=== PATIENT | male | born 1985 | race Two or more races ===

== ENCOUNTER 2024-09-02 16:27 | Emergency (ER) | payer MEDICAID, SELFPAY ==
[2024-09-02 16:28] VITALS: BP 149/106; PULSE 150; RESP 18; TEMP 37.3; O2SAT 96; BMI 20.8
--- NOTE | 2024-09-02 16:34 | EKG_ITS ---
[facility] Test Date: 2024-09-02 Pat Name: NAN VACA Department: Room: - Gender: Male End User Consultant: : 1985 Requested By: Cici Mills Order Number: [id number] Reading MD: Cici Mills Measurements Intervals [place] Rate: 112 P: 66 WA: 154 QRS: 67 QRSD: 94 T: 70 QT: 324 QTc: 444 Interpretive Statements SINUS TACHYCARDIA POSSIBLE LEFT ATRIAL ENLARGEMENT [-0.1mV P-WAVE IN V1/V2] ABNORMAL RHYTHM ECG No previous ECG available for comparison /store/S0/[id number]/[id number]
--- NOTE | 2024-09-02 16:34 | PD.EDMEDCL ---
ED Medical Clearance RME/HPI General Chief complaint: Medical Clearance Stated complaint: MEDICAL CLEARANCE Time Seen by Provider: 09/02/24 16:30 Arrival date/time: 09/02/24 16:27 RME / HPI RME / HPI Narrative: 38-year-old male patient was brought in by law enforcement for medical clearance. Patient was incarcerated for today for unknown reasons, and patient told me that he has been working outside under the sun. Currently he is not having any chest pain, no headache, no palpitation, no symptoms according to him. Patient is taking blood pressure medication and he took it this morning. Patient told me that every time he come to the emergency room his heart rate is always high and blood pressure is also high due to being very anxious. He denies any drug abuse. He told me that he drank alcohol this morning. Related Information Allergies Allergy/AdvReac Type Severity Reaction Status Date / Time No Known Allergies Allergy Verified 09/02/24 16:34 Review of Systems Review of Systems Narrative Review of Systems: Review of system reviewed and within normal limits except mentioned in HPI ED Exam Narrative Physical exam: VITAL SIGNS: Reviewed. GENERAL APPEARANCE: Alert and interactive, follows commands, no acute distress, HEAD AND FACE: Non-traumatic. ENT: PERRL, pink conjunctivitis, eyelid no trauma, Mucous membrane moist. NECK: Supple, nontender, no nuchal rigidity. CHEST: No tenderness, no crepitus, no paradoxical movement, no retractions. LUNGS: Clear, well ventilated, symmetric, no rales, no wheezing, no ronchi, no stridor, good breath sounds bilaterally. HEART tachycardic, no murmur, no gallops. ABDOMEN: Soft, positive bowel sounds, nondistended, no guarding, nontender, no rebound, no masses, RECTAL: Deferred. GENITAL: Deferred. NEUROLOGICAL: Gross motor function intact sensory function intact, Appropriate for age. MUSCULOSKELETAL: low back nontender, full range of motion. EXTREMITIES: Nontender, full range of motion. SKIN: Color pink, dry, no rash, no lacerations, no abrasions, no contusions. LYMPHATICS: Deferred. Course Quality Measures none Orders Category Date Time Status EKG (ED ONLY) *Do not use* NOW Care 09/02/24 16:34 Completed EKG (ED Only) Stat Exams 09/02/24 16:34 Draft LORazepam [Ativan Inj] Med 09/02/24 16:34 Discontinued 1 mg IVP X1 ONE LORazepam [Ativan] Med 09/02/24 16:58 Discontinued 1 mg PO X1 ONE Sodium Chloride 0.9% 1000 ml [Ns] 1,000 ml Med 09/02/24 16:34 Discontinued IV 999 mls/hr Vital Signs Vital signs: Vital Signs Temperature 99.2 F 09/02/24 16:28 Pulse Rate 150 H 09/02/24 16:28 Respiratory Rate 18 09/02/24 16:28 Blood Pressure 149/106 H 09/02/24 16:28 Pulse Oximetry (%) 96 09/02/24 16:28 Oxygen Delivery Method Room Air 09/02/24 16:28 Medical Clearance [facility] Narrative [facility] Narrative:: 38-year-old male patient was brought in by law enforcement for medical clearance. Patient was incarcerated for today for unknown reasons, and patient told me that he has been working outside under the sun. Currently he is not having any chest pain, no headache, no palpitation, no symptoms according to him. Patient is taking blood pressure medication and he took it this morning. Patient told me that every time he come to the emergency room his heart rate is always high and blood pressure is also high due to being very anxious. He denies any drug abuse. He told me that he drank alcohol this morning. Patient is medically cleared for [facility]pc clearance. Latest blood pressure was noted to be 140/92, heart rate 110. Patient is denying any complaints. Observe patient received IV fluids and Ativan. Patient EKG showed sinus tachycardia, ventricular rate of 112 bpm, no ST segment elevation or depression noted. Patient data External records reviewed:: None Clinical information provided by:: patient Social determinants that could affect healthcare access:: none Patient has the following chronic illnesses:: None How is presenting disease/condition affected by chronic disease/condition?: no chronic disease Evaluation data The following diagnostics were reviewed and interpreted by me:: EKG tracing(s) Lab and/or radiology exams considered but not ordered:: None Interpretation Summary: See results MDM Medications / Prescriptions Medications or Prescriptions considered but not ordered:: None Medication administrations:: Medication Administration History Discontinued Medications Sodium Chloride (Ns) 1,000 mls @ 999 mls/hr IV .Q1H1M ONE Stop: 09/02/24 17:34 Last Infusion: 09/02/24 17:46 Dose: Infused Documented By: Admin: 09/02/24 17:07 Dose: 999 mls/hr Documented By: MAXIME Lorazepam (Lorazepam 2 Mg/Ml Vial) 1 mg IVP X1 ONE Stop: 09/02/24 16:35 Last Admin: 09/02/24 16:57 Dose: Not Given Documented By: SHAE Non-Admin Reason: Cancelled by Provider Lorazepam (Lorazepam 0.5 Mg Tablet) 1 mg PO X1 ONE Stop: 09/02/24 16:59 Last Admin: 09/02/24 17:06 Dose: 1 mg Documented By: MAXIME Ativan and IV fluids Consultations Consultation(s) initiated? (list below): No Diagnosis Medical Clearance Differential Diagnosis: other (Medical clearance, tachycardia, hypertension) Most likely diagnosis given after review of the tests above:: Medical clearance for incarceration Admission Indicated Admission indicated?: not indicated Admission Request Was there a request for admission?: No Disposition Plan Disposition Plan: Discharge Discharge Attestation Discharge Attestation: The patient was given an opportunity to ask questions and understood the discharge instructions. Discharge instructions specifically effects, indications for sooner follow up or return to the emergency department, and the expected course of current diagnosis. Patient condition: Stable Discharge Plan Plan Patient Disposition: Shelter/Court/Law Discharge Disposition comment: Stable Problem List Clinical Impression: Medical clearance for incarceration Patient/Caregiver Discharge Instructions Discharge Activity: activity as tolerated Education Materials: Reducing Your Health Risks ... Additional Instructions: Thank you for the opportunity for serving you today. You are stable for discharged . Print Language: Wolof Stand Alone Forms: Ariadne Award Info., Patient Portal Info Letter CARLOS/CHANTELLE Supervising Physician KIT Supervising Physician: MD Kellie
[2024-09-02] MEDS: SODIUM CHLORIDE 0.9% 1000 ML 1,000 ML 999 ML IV (17:07)
--- NOTE | 2024-09-02 17:25 | EDNOTE_ITS ---
ED Medical Clearance RME/HPI General Chief complaint: Medical Clearance Stated complaint: MEDICAL CLEARANCE Time Seen by Provider: 09/02/24 16:30 Arrival date/time: 09/02/24 16:27 RME / HPI RME / HPI Narrative: 38-year-old male patient was brought in by law enforcement for medical clearance. Patient was incarcerated for today for unknown reasons, and patient told me that he has been working outside under the sun. Currently he is not having any chest pain, no headache, no palpitation, no symptoms according to him. Patient is taking blood pressure medication and he took it this morning. Patient told me that every time he come to the emergency room his heart rate is always high and blood pressure is also high due to being very anxious. He denies any drug abuse. He told me that he drank alcohol this morning. Related Information Allergies Allergy/AdvReac Type Severity Reaction Status Date / Time No Known Allergies Allergy Verified 09/02/24 16:34 Course Quality Measures none Orders Category Date Time Status EKG (ED ONLY) *Do not use* NOW Care 09/02/24 16:34 Completed EKG (ED Only) Stat Exams 09/02/24 16:34 Draft LORazepam [Ativan Inj] Med 09/02/24 16:34 Discontinued 1 mg IVP X1 ONE LORazepam [Ativan] Med 09/02/24 16:58 Discontinued 1 mg PO X1 ONE Sodium Chloride 0.9% 1000 ml [Ns] 1,000 ml Med 09/02/24 16:34 Active IV 999 mls/hr Vital Signs Vital signs: Vital Signs Temperature 99.2 F 09/02/24 16:28 Pulse Rate 150 H 09/02/24 16:28 Respiratory Rate 18 09/02/24 16:28 Blood Pressure 149/106 H 09/02/24 16:28 Pulse Oximetry (%) 96 09/02/24 16:28 Oxygen Delivery Method Room Air 09/02/24 16:28 Medical Clearance MDM Narrative MDM Narrative:: 38-year-old male patient was brought in by law enforcement for medical clearance. Patient was incarcerated for today for unknown reasons, and patient told me that he has been working outside under the sun. Currently he is not having any chest pain, no headache, no palpitation, no symptoms according to him. Patient is taking blood pressure medication and he took it this morning. Patient told me that every time he come to the emergency room his heart rate is always high and blood pressure is also high due to being very anxious. He denies any drug abuse. He told me that he drank alcohol this morning. Patient received IV fluids, and Ativan. Latest heart rate was noted to be 110 blood pressure 140/92. Patient is not having any symptoms. Patient is medically cleared for incarceration. Patient data External records reviewed:: None Clinical information provided by:: patient Social determinants that could affect healthcare access:: none Patient has the following chronic illnesses:: Hypertension How is presenting disease/condition affected by chronic disease/condition?: exacerbated by Evaluation data The following diagnostics were reviewed and interpreted by me:: EKG tracing(s) Lab and/or radiology exams considered but not ordered:: None Interpretation Summary: See results MDM Medications / Prescriptions Medications or Prescriptions considered but not ordered:: None Medication administrations:: Medication Administration History Sodium Chloride (Ns) 1,000 mls @ 999 mls/hr IV .Q1H1M ONE Stop: 09/02/24 17:34 Last Admin: 09/02/24 17:07 Dose: 999 mls/hr Documented By: MAXIME Discontinued Medications Lorazepam (Lorazepam 2 Mg/Ml Vial) 1 mg IVP X1 ONE Stop: 09/02/24 16:35 Last Admin: 09/02/24 16:57 Dose: Not Given Documented By: SHAE Non-Admin Reason: Cancelled by Provider Lorazepam (Lorazepam 0.5 Mg Tablet) 1 mg PO X1 ONE Stop: 09/02/24 16:59 Last Admin: 09/02/24 17:06 Dose: 1 mg Documented By: MAXIME IV fluids, antibiotics Consultations Consultation(s) initiated? (list below): No Diagnosis Medical Clearance Differential Diagnosis: other Most likely diagnosis given after review of the tests above:: Medical clearance for incarceration Admission Indicated Admission indicated?: not indicated Admission Request Was there a request for admission?: No Disposition Plan Disposition Plan: Discharge Discharge Attestation Discharge Attestation: Patient condition: Stable Discharge Plan Plan Patient Disposition: Usp/Court/Law Discharge Disposition comment: Stable Problem List Clinical Impression: Medical clearance for incarceration Patient/Caregiver Discharge Instructions Discharge Activity: activity as tolerated Education Materials: Reducing Your Health Risks ... Additional Instructions: Thank you for the opportunity for serving you today. You are stable for discharged . Print Language: Czech Stand Alone Forms: Ariadne Award Info., Patient Portal Info Letter PA/RADIOLOGIC TECHNOLOGY INSTRUCTOR Supervising Physician PA/RADIOLOGIC TECHNOLOGY INSTRUCTOR Supervising Physician: MD Kellie
[2024-09-02 17:30] VITALS: BP 140/89; PULSE 109; RESP 19; TEMP 37; O2SAT 98
== END 2024-09-02 17:38 ==
LOC: SERX 17:45
PROVIDERS: Emergency Provider Emergency Medicine
DX: Z02.89 Encounter for other administrative examinations (principal); R00.0 Tachycardia, unspecified; I10 Essential (primary) hypertension
CPT/HCPCS: 93005; 96360; 99283; J7030; A9270